=== PATIENT | male | born 1950 | race Caucasian/White ===

== ENCOUNTER 2020-02-21 09:01 | Observation (INO) | payer MEDICARE, SELFPAY ==
[2020-02-21] VITALS (9 sets, daily range): BP systolic 121–174; BP diastolic 60–86; PULSE 68–80; RESP 16–19; TEMP 36.6–37.2; O2SAT 95–98; BMI 25.7
[2020-02-21] MEDS: LIDOCAINE 2% (UROJET) 5 ML GEL TOP (09:24)
--- NOTE | 2020-02-21 09:36 | ED_ITS ---
HPI - Abdominal Pain General Chief Complaint: Abdominal Pain Stated Complaint: Unable to urinate for 7hrs Time Seen by Provider: 02/21/20 09:13 Source: patient Mode of arrival: Ambulatory Limitations: no limitations History of Present Illness HPI narrative: CC: Suprapubic abdominal pain HPI: The patient is a 69-year-old male who comes into the emergency department stating that he developed pain and discomfort after he last urinated at 2:30 a.m.. The pain and discomfort is located suprapubically in his lower abdomen. It is a discomfort associated with the feeling that he has to urinate but is unable to urinate. He complains that he has never before had urinary retention. Two years ago he had a urinary tract infection and was treated with Cipro. He states that he has been unable to urinate for the last 7 hours. He stated that on Sunday he developed hematuria but was started on Xarelto 10 days ago. He feels like he needs to urinate. He has had no other injury or instrumentation. He has had no recent anesthesia or has taking any cold medications. His pain and discomfort is approximately 5 to 6/10 in intensity. The discomfort is just progressively becoming more uncomfortable and annoying. He denies a history of diabetes mellitus stroke myocardial infarction COPD or asthma as well as any prostatitis prostate problems. He admits to history of hypertension and an allergy to lisinopril causing cough. He does not smoke cigarettes drink alcohol use any drugs or marijuana products. 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 Related Data Home Medications Medication Instructions Recorded Confirmed Diltiazem Cd 120 mg PO PRN PRN 02/21/20 02/21/20 candesartan 8 mg PO BEDTIME 02/21/20 02/21/20 ezetimibe 10 mg PO BEDTIME 02/21/20 02/21/20 rivaroxaban [Xarelto] 20 mg PO DAILY 02/21/20 02/21/20 Allergies Allergy/AdvReac Type Severity Reaction Status Date / Time lisinopril Allergy Verified 02/21/20 09:38 Review of Systems Review of Systems Narrative: REVIEW OF SYSTEMS: CONSTITUTIONAL: He denies any fever chills but has had intermittent sweats. NEUROLOGICAL: He denies any headache numbness tingling paresthesias anesthesia is paresis or paralysis. EENT: He denies any sore throat or dysphagia CARDIO-PULMONARY: He denies any shortness of breath cough chest pain palpitations or dizziness. GASTROINTESTINAL: He has had no nausea vomiting diarrhea change in bowel habits melena hematochezia. GENITAL URINARY: He has had recent hematuria some questionable dysuria and urinary retention MUSCULOSKELETAL/ RHEUMATOLOGICAL: He denies any significant back pain. DERMATOLOGICAL: Denies any skin rash bruising MENTAL HEALTH: Patient History Medical History (Updated 02/21/20 @ 19:24 by Yosef Johnson MD) Hyperlipidemia (Acute) Hypertension (Acute) Paroxysmal atrial fibrillation (Acute) Social History household members: spouse Smoking Status: Never smoker Smoking Status: Never smoker alcohol intake frequency: holidays/special occasions only Substance Use Type: does not use Exam Narrative Exam Narrative: PHYSICAL EXAM: CONSTITUTIONAL: Awake, Alert, Oriented, Coherent, Cooperative in NAD. The patie nt is very stoic and matter of fact. He does appear mildly pale HEAD: AT/NC EENT: PERRL, FROM of eyes, no discharge, MOUTH:Oral mucosa is moist and pink, lips appear pale NECK: Supple, no obvious JVD, Trachea is midline without stridor, no palpable LN. SPINE: Palpationof the cervical, Thoracic, Lumbar or Sacral spine reveals no gross deformity or tenderness. No CVA tenderness. THORAX: No deformity, retractions, chest wall tenderness. LUNGS: Clear, symmetrical breath sounds without respiratory distress. HEART: Normal heart tones, regular rhythm and rate without murmur. ABDOMEN: Abdomen is soft tender suprapubically without guarding rebound or rigidity. There is no masses noted. The patient has a normal adult failure us without penile discharge or bleeding. Testicles are descended without mass or tenderness. No appreciable gross inguinal hernia LYMPHATIC: no palpable lymph nodes or spleen. EXTREMITIES: No edema, deformity, tenderness or cyanosis. SKIN: No rash, bruising, petechiae or purpura. NEURO: Awake, alert, oriented, conversive, cranial nerves II-XII are symmetrical , moves all 4 extremities and is ambulatory. MENTAL HEALTH: Does not appear anxious or depressed. Initial Vital Signs Initial Vital Signs: Vital Signs Temperature 97.9 F 02/21/20 09:12 Pulse Rate 68 02/21/20 09:12 Respiratory Rate 19 02/21/20 09:12 Blood Pressure 174/79 H 02/21/20 09:12 Pulse Oximetry 98 02/21/20 09:12 Course Course Course Narrative: 1220 CT scan of the patient's abdomen without contrast since his GFR was only 27.5 reveals a moderate right-sided hydroureter and hydroneph rosis with perinephric fat stranding. This may be related to a recently passed stone. Differential diagnosis includes infection. However no renal stones are seen either side. The left kidney is abnormal with a prominent Daiana dilated collecting system with thinning of the cortex and a normal caliber ureter. 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 Please correlate with known patient history. I will discuss the patient with Dr. Dietrich, urologist. The patient's urine remains pending. The patient has been administered 1 L of fluid. He has now been placed on 200 cc/hour. The patient has right-sided hydronephrosis with what appears to be an obstruction without a stone being visualized. The question is whether not the patient has developed renal failure secondary to obstruction. Andujar catheter inserted did not reveal any urine but just some blood clots. His bladder was irrigated with no increased urine output. Orders Ordered: Ezetimibe (Zetia) 10 mg PO BEDTIME [facility] Last Admin: 02/21/20 22:09 Dose: 10 mg Documented by: RUSS Naloxone HCl (Narcan) 0.2 mg IV Q2MIN PRN PRN Reason: Opiate Reversal Sodium Chloride (Normal Saline 0.9% Flush) 10 ml IV PRN PRN PRN Reason: Flush Sodium Chloride (Normal Saline 0.9% Flush) 10 ml IV BID [facility] Discontinued Medications Candesartan Cilexetil (Atacand) 8 mg PO BEDTIME ARACELIS Sodium Chloride (Normal Saline 0.9%) 1,000 mls @ 1,000 mls/hr IV BOLUS ONE Stop: 02/21/20 10:48 Last Infusion: 02/21/20 11:03 Dose: 0 mls/hr Documented by: Admin: 02/21/20 10:10 Dose: 1,000 mls/hr Documented by: DONNA Sodium Chloride (Normal Saline 0.9%) 1,000 mls @ 1,000 mls/hr IV BOLUS ONE Stop: 02/21/20 15:31 Last Infusion: 02/21/20 14:34 Dose: 0 mls/hr Documented by: Admin: 02/21/20 13:50 Dose: 1,000 mls/hr Documented by: DONNA Cefepime HCl 2 gm/ Sodium (Chloride) 100 mls @ 200 mls/hr IV NOW ONE Stop: 02/21/20 14:39 Last Infusion: 02/21/20 15:53 Dose: 0 mls/hr Documented by: Admin: 02/21/20 15:09 Dose: 200 mls/hr Documented by: DONNA Lidocaine HCl (Urojet) 5 ml TOP NOW ONE Stop: 02/21/20 09:19 Last Admin: 02/21/20 09:24 Dose: 5 ml Documented by: DONNA Vital Signs Vital signs: Vital Signs - 8 hr 02/21/20 09:12 02/21/20 12:00 Temperature 97.9 F Pulse Rate 68 73 Respiratory Rate 19 Blood Pressure 174/79 H Blood Pressure [Right Arm] 162/81 H Pulse Oximetry 98 96 MDM - Abdominal Pain Lab Data Result diagrams: 02/22/20 05:41 02/22/20 05:41 Labs: Lab Results 02/21/20 02/21/20 02/21/20 Range/Units 10:00 10:00 10:00 WBC 13.3 H (4.5-11.0) X10^3/uL RBC 4.45 L (4.5-5.9) X10^6/uL Hgb 13.9 (13.5-17.5) g/dL Hct 41.2 (41-53) % MCV 92.7 (80-100) fL MCH 31.3 (26-34) PG MCHC 33.8 (30-36) % RDW 13.1 (11.6-14.8) % Plt Count 200 (150-400) X10^3/uL Neut % (Auto) 92.0 H (50-75) % Lymph % (Auto) 4.3 L (25-40) % Waller % (Auto) 3.2 (3-14) % Eos % (Auto) 0.0 L (2-4) % Baso % (Auto) 0.5 (0-2) % Neut # (Auto) 01668 H (2280-1637) /uL Lymph # (Auto) 600 L (5793-9583) /uL Waller # (Auto) 400 (0-900) /uL Eos # (Auto) 0 (0-450) /uL Baso # (Auto) 100 (0-100) /uL PT 12.2 (10.1-12.7) SECONDS INR 1.1 (0.9-1.3) APTT 29 (26.4-36.2) SECONDS Sodium 137 (137-145) mmol/L Potassium 4.7 (3.4-5.1) mmol/L Chloride 104 (98-107) mmol/L Carbon Dioxide 24 (22-32) mmol/L BUN 37 H (9-20) mg/dL Creatinine 2.36 H (0.66-1.25) mg/dL Estimated GFR 27.5 L (>60) mL/min BUN/Creatinine Ratio 15.7 (6-22) Glucose 127 H (80-110) mg/dL Lactate (0.7-2.1) mmol/L Calcium 9.0 (8.4-10.2) mg/dL Total Bilirubin 0.7 (0.2-1.3) mg/dL AST 38 (17-59) IU/L ALT 22 (<50) IU/L Alkaline Phosphatase 53 (38-126) U/L Lactate Dehydrogenase (313-618) U/L Total Protein 7.7 (6.3-8.2) g/dL Albumin 4.5 (3.5-5.0) g/dL Globulin 3.2 (1.7-4.1) g/dL Albumin/Globulin Ratio 1.4 (1.0-2.8) Procalcitonin (<0.5) ng/mL Urine Color Urine Appearance Urine pH (4.5-8.0) Ur Specific Caldwell (1.000-1.035) Urine Protein (Negative) Urine Glucose (UA) (Negative) g/dL Urine Ketones (NEGATIVE) Urine Occult Blood (Negative) Urine Nitrate (Negative) Urine Bilirubin (NEGATIVE) Urine Urobilinogen (0.2) E.U./dL Ur Leukocyte Esterase (NEGATIVE) Urine RBC (0-5/HPF) Urine WBC (0-5/HPF) Ur Squamous Epith Cells (0-5/HPF) Urine Bacteria (None) Ur Culture Indicated? 02/21/20 02/21/20 02/21/20 Range/Units 10:00 10:00 10:34 WBC (4.5-11.0) X10^3/uL RBC (4.5-5.9) X10^6/uL Hgb (13.5-17.5) g/dL Hct (41-53) % MCV (80-100) fL MCH (26-34) PG MCHC (30-36) % RDW (11.6-14.8) % Plt Count (150-400) X10^3/uL Neut % (Auto) (50-75) % Lymph % (Auto) (25-40) % Waller % (Auto) (3-14) % Eos % (Auto) (2-4) % Baso % (Auto) (0-2) % Neut # (Auto) (0737-9655) /uL Lymph # (Auto) (7197-8740) /uL Waller # (Auto) (0-900) /uL Eos # (Auto) (0-450) /uL Baso # (Auto) (0-100) /uL PT (10.1-12.7) SECONDS INR (0.9-1.3) APTT (26.4-36.2) SECONDS Sodium (137-145) mmol/L Potassium (3.4-5.1) mmol/L Chloride (98-107) mmol/L Carbon Dioxide (22-32) mmol/L BUN (9-20) mg/dL Creatinine (0.66-1.25) mg/dL Estimated GFR (>60) mL/min BUN/Creatinine Ratio (6-22) Glucose (80-110) mg/dL Lactate 1.4 (0.7-2.1) mmol/L Calcium (8.4-10.2) mg/dL Total Bilirubin (0.2-1.3) mg/dL AST (17-59) IU/L ALT (<50) IU/L Alkaline Phosphatase (38-126) U/L Lactate Dehydrogenase 657 H (313-618) U/L Total Protein (6.3-8.2) g/dL Albumin (3.5-5.0) g/dL Globulin (1.7-4.1) g/dL Albumin/Globulin Ratio (1.0-2.8) Procalcitonin < 0.05 (<0.5) ng/mL Urine Color Urine Appearance Urine pH (4.5-8.0) Ur Specific Caldwell (1.000-1.035) Urine Protein (Negative) Urine Glucose (UA) (Negative) g/dL Urine Ketones (NEGATIVE) Urine Occult Blood (Negative) Urine Nitrate (Negative) Urine Bilirubin (NEGATIVE) Urine Urobilinogen (0.2) E.U./dL Ur Leukocyte Esterase (NEGATIVE) Urine RBC (0-5/HPF) Urine WBC (0-5/HPF) Ur Squamous Epith Cells (0-5/HPF) Urine Bacteria (None) Ur Culture Indicated? 02/21/20 Range/Units 13:25 WBC (4.5-11.0) X10^3/uL RBC (4.5-5.9) X10^6/uL Hgb (13.5-17.5) g/dL Hct (41-53) % MCV (80-100) fL MCH (26-34) PG MCHC (30-36) % RDW (11.6-14.8) % Plt Count (150-400) X10^3/uL Neut % (Auto) (50-75) % Lymph % (Auto) (25-40) % Waller % (Auto) (3-14) % Eos % (Auto) (2-4) % Baso % (Auto) (0-2) % Neut # (Auto) (7906-6120) /uL Lymph # (Auto) (4877-8118) /uL Waller # (Auto) (0-900) /uL Eos # (Auto) (0-450) /uL Baso # (Auto) (0-100) /uL PT (10.1-12.7) SECONDS INR (0.9-1.3) APTT (26.4-36.2) SECONDS Sodium (137-145) mmol/L Potassium (3.4-5.1) mmol/L Chloride (98-107) mmol/L Carbon Dioxide (22-32) mmol/L BUN (9-20) mg/dL Creatinine (0.66-1.25) mg/dL Estimated GFR (>60) mL/min BUN/Creatinine Ratio (6-22) Glucose (80-110) mg/dL Lactate (0.7-2.1) mmol/L Calcium (8.4-10.2) mg/dL Total Bilirubin (0.2-1.3) mg/dL AST (17-59) IU/L ALT (<50) IU/L Alkaline Phosphatase (38-126) U/L Lactate Dehydrogenase (313-618) U/L Total Protein (6.3-8.2) g/dL Albumin (3.5-5.0) g/dL Globulin (1.7-4.1) g/dL Albumin/Globulin Ratio (1.0-2.8) Procalcitonin (<0.5) ng/mL Urine Color Yellow Urine Appearance Clear Urine pH 7.5 (4.5-8.0) Ur Specific Caldwell <=1.005 (1.000-1.035) Urine Protein Trace H (Negative) Urine Glucose (UA) Negative (Negative) g/dL Urine Ketones Negative (NEGATIVE) Urine Occult Blood 3+ H (Negative) Urine Nitrate Negative (Negative) Urine Bilirubin Negative (NEGATIVE) Urine Urobilinogen 0.2 (0.2) E.U./dL Ur Leukocyte Esterase Negative (NEGATIVE) Urine RBC 10-30/hpf H (0-5/HPF) Urine WBC 5-10/hpf H (0-5/HPF) Ur Squamous Epith Cells 0-1 /hpf (0-5/HPF) Urine Bacteria Occasional (0-1) (None) Ur Culture Indicated? Specimen cultured Discharge Plan Departure Patient Disposition: Admitted as Observation Clinical Impression: Abdominal pain, suprapubic, Acute pyelonephritis Urinary tract infection Qualifiers: Urinary tract infection type: acute cystitis Hematuria presence: with hematuria Qualified Code(s): N30.01 - Acute cystitis with hematuria Hydronephrosis Qualifiers: Hydronephrosis type: other Qualified Code(s): N13.39 - Other hydronephrosis Renal failure Qualifiers: Renal failure chronicity: unspecified chronicity Qualified Code(s): N19 - Unspecified kidney failure Discharge Date/Time: 02/21/20 16:55 Admit Date/Time: 02/21/20 15:53 Admit Provider: Yosef Johnson
--- NOTE | 2020-02-21 09:49 | DI.CT.S_ITS ---
PROCEDURE: CT ABDOMEN PELVIS WO CON INDICATIONS: lower abdominal pain TECHNIQUE: Noncontrast 5 mm thick sections acquired from the diaphragms to the symphysis. 5 mm thick coronal and sagittal reformats were then performed. For radiation dose reduction, the following was used: automated exposure control, adjustment of mA and/or kV according to patient size. COMPARISON: None. FINDINGS: Image quality: Excellent. Lung bases: Lung bases are clear. Heart size is normal. A small hiatal hernia is incidentally noted. Urinary system: On the left, there is prominent dilatation of the renal collecting system, with a normal caliber left ureter. No stones are seen along the left ureter. There is prominent thinning of the left renal cortex. On the right, there is prominent fatty stranding seen. There is moderate right-sided hydroureter and hydronephrosis. No nonobstructing stones are seen on either side. A Andujar catheter is seen, which decompresses the bladder. Other solid organs: Liver is normal in size. Gallbladder demonstrates no significant noncontrast abnormality. Pancreas is normal in contours. Spleen is normal in size. No adrenal nodules. Peritoneum and bowel: Unenhanced bowel loops demonstrate normal wall thickness and caliber. No free fluid or air. Nodes and vessels: No retroperitoneal or mesenteric adenopathy by size criteria. Aorta and inferior vena cava are normal in caliber. Atherosclerotic calcification is noted. Incidental note is made of a retroaortic left renal vein. Abdominal wall: No ventral hernias. Pelvis: No free pelvic fluid. No enlarged inguinal or pelvic lymph nodes are seen. Bilateral fat containing inguinal hernias are seen. Pelvic phleboliths are incidentally noted. Bones: No suspicious bony lesions. No vertebral body compression fractures. Mild dextroconvex scoliotic curvature is seen. Lower lumbar spine degenerative changes are seen. Milder degenerative changes are seen elsewhere. IMPRESSION: There is moderate right-sided hydroureter and hydronephrosis with perinephric fat stranding. This may be related to a recently passed stone. Differential diagnosis includes infection, however. No renal stones are seen either side. The left kidney is abnormal, with a prominently dilated collecting system with thinning of the cortex and a normal caliber ureter. 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 Please correlate with known patient history. Incidental note is made of: Small hiatal hernia Retroaortic left renal vein Bilateral fat containing inguinal hernias Andujar catheter Dextroconvex clinic curvature Lower lumbar spine degenerative change Dictated by: Monty Constantino M.D. on 02/21/2020 at 10:19 Approved by: Monty Constantino M.D. on 02/21/2020 at 10:25
[2020-02-21] MEDS: SODIUM CHLORIDE 0.9% 1,000 ML 1000 ML IV ×2 (10:10→13:50)
[2020-02-21 10:16] LABS: Add Manual Diff / Slide Review NO; Basophils Absolute Auto 100 /uL (0-100); Basophils Percent Auto 0.5 % (0-2); Eosinophils Absolute Auto 0 /uL (0-450); Hematocrit 41.2 % (41-53); Hemoglobin 13.9 g/dL (13.5-17.5); Lymphocytes Absolute Auto 600 /uL (1100-4500); Lymphocytes Percent Auto 4.3 % (25-40); Mean Corpuscular HGB Conc 33.8 % (30-36); Mean Corpuscular Hemoglobin 31.3 PG (26-34); Mean Corpuscular Volume 92.7 fL (80-100); Monocytes Absolute Auto 400 /uL (0-900); Monocytes Percent Auto 3.2 % (3-14); Neutrophils Absolute Auto 12200 /uL (1500-7000); Platelet Count 200 X10^3/uL (150-400); Red Blood Cell Count 4.45 X10^6/uL (4.5-5.9); Red Cell Distribution Width 13.1 % (11.6-14.8); White Blood Cell Count 13.3 X10^3/uL (4.5-11.0)
[2020-02-21 10:19] LABS: INR 1.1 (0.9-1.3); Prothrombin Time 12.2 SECONDS (10.1-12.7)
[2020-02-21 10:21] LABS: PTT Partial Thromboplastin Tim 29 SECONDS (26.4-36.2)
[2020-02-21 10:24] LABS: Alanine Aminotransferase 22 IU/L (<50); Albumin 4.5 g/dL (3.5-5.0); Albumin Globulin Ratio 1.4 (1.0-2.8); Alkaline Phosphatase 53 U/L (38-126); Aspartate Aminotransferase 38 IU/L (17-59); BUN Creatinine Ratio 15.7 (6-22); Bilirubin Total 0.7 mg/dL (0.2-1.3); Blood Urea Nitrogen 37 mg/dL (9-20); Carbon Dioxide 24 mmol/L (22-32); Chloride 104 mmol/L (98-107); Estimated Glomerular Filt Rate 27.5 mL/min (>60); Globulin 3.2 g/dL (1.7-4.1); Glucose 127 mg/dL (80-110); Sodium 137 mmol/L (137-145); Total Protein 7.7 g/dL (6.3-8.2)
[2020-02-21 10:25] LABS: Lactate Dehydrogenase 657 U/L (313-618)
[2020-02-21 10:36] LABS: HEMOLYSIS 61 (0-50); Potassium 4.7 mmol/L (3.4-5.1)
[2020-02-21 10:53] LABS: Lactate (Lactic Acid) 1.4 mmol/L (0.7-2.1)
[2020-02-21 13:37] LABS: Appearance Urine UA CLEAR; Bilirubin Urine UA NEGATIVE (NEGATIVE); Color Urine UA YELLOW; Glucose Urine UA NEGATIVE (Negative); Ketones Urine UA NEGATIVE (NEGATIVE); Leukocyte Esterase Urine UA NEGATIVE (NEGATIVE); Nitrite Urine UA NEGATIVE (Negative); Occult Blood Urine UA 3+ (Negative); Protein Urine UA TRACE (Negative); Specific Gravity Urine UA <=1.005 (1.000-1.035); Urobilinogen Urine UA 0.2 E.U./dL (0.2); pH Urine UA 7.5 (4.5-8.0)
[2020-02-21 13:44] LABS: Bacteria Urine Occasional (0-1); Culture Indicated Urine Specimen Cultured; RBC Urine 10-30/HPF (0-5/HPF); Squamous Epithelial Cell Urine 0-1 /HPF (0-5/HPF); WBC Urine 5-10/HPF (0-5/HPF)
--- NOTE | 2020-02-21 14:36 | DI.US.S_ITS ---
PROCEDURE: US RENAL COMPLETE INDICATIONS: RENAL FAILURE, RIGHT HYDRONEPHROSIS TECHNIQUE: Real-time scanning was performed of the kidneys and bladder, with image documentation. COMPARISON: [facility], CT, CT ABDOMEN PELVIS WO [facility], 02/21/2020, 10:52. FINDINGS: Kidneys: Kidneys are normal in size. Right kidney measures 12.3 cm long; left kidney measures 12.6 cm long. Right renal cortical thickness is 1.6 cm; left renal cortical thickness is 0.8 cm. Renal cortical echotexture is normal. No nephrolithiasis. No suspicious solid mass lesions. Moderate sided hydronephrosis is seen. Prominently dilated left renal calyces can be seen. Bladder: A Andujar catheter is in place, which limits evaluation of the bladder. Miscellaneous: No free pelvic fluid. IMPRESSION: Right-sided hydronephrosis. Left calyceal dilatation with, thinning of the renal cortex. The abnormal kidneys are better seen on the CT performed earlier in the day. Note: Concordant preliminary findings given by the business coordinator upon the completion of the examination to Dr. Morgan at 3:45 PM on the day of dictation. Dictated by: Monty Constantino M.D. on 02/21/2020 at 15:04 Approved by: Monty Constantino M.D. on 02/21/2020 at 15:07
[2020-02-21] MEDS: CEFEPIME 2 GM in SODIUM CHLORIDE 0.9% 100 ML 200 ML IV (15:09)
--- NOTE | 2020-02-21 17:29 | PC.ADMIT ---
Addendum entered by Vanessa Wray R.N. 02/21/20 20:13: Home Meds locked in Night med room for pharmacist to store in pharmacy. (Diltiazem, Candesartan, Ezetimibe) Wallet with $121 and credit/debit cards locked in hospital safe. Original Note: [facility] Admission Note: The patient,Hernan Agustin,69 y/o, was given written information regarding hospital policies, unit procedures and contact persons. Patient's smoking status: Never smoker. Pt arrived to room 215. A/O. Ambulated from stretcher to bed. Steady on feet. BP Elevated pt denies symptoms. Oriented to room and call system. Andujar draining to gravity. Dinner tray provided. Bed alarm on. Vital Signs - 8 hr 02/21/20 12:00 02/21/20 13:00 02/21/20 14:30 Pulse Rate 73 79 75 Respiratory Rate Blood Pressure [Right Arm] 162/81 H 137/71 148/70 H Pulse Oximetry 96 96 97 02/21/20 15:00 02/21/20 16:30 Pulse Rate 80 75 Respiratory Rate 116 H Blood Pressure [Right Arm] 156/73 H 135/72 Pulse Oximetry 95 95
[2020-02-21 19:12] LABS: Procalcitonin < 0.05 ng/mL (<0.5)
--- NOTE | 2020-02-21 19:24 | PM.HP.1 ---
History of Present Illness History of Present Illness Date Patient Seen: 02/21/20 Time Patient Seen: 18:30 Chief complaint: Unable to urinate for 7hrs Narrative: Patient is a 69-year-old male with history of hypertension, hyperlipidemia, recent diagnosis of paroxysmal atrial fibrillation and started on Xarelto who presented to the emergency department due to difficulty urinating since last night. Patient has history of left kidney abnormality for which she was seeing a urologist while living in [place]. He was told the kidney problem was chronic and not affecting his kidney function. He also was followed by drafting engineer although told that his creatinine is only borderline high or mildly abnormal. Patient developed acute gross hematuria 3 days ago. He was not having pain or urgency at that time. He then stop the Xarelto. He felt fine when he went to bed last night. He woke up at around 2:30 a.m. with urinary urgency but unable to empty his bladder. This was accompanied by severe spasms of suprapubic pain. The symptoms persisted until he came into the ER this morning. He has not had fever, chills, nausea, vomiting or flank pain. He has no history of kidney stones. His KUB CT showed hydronephrosis of the left kidney which is likely chronic based on history provided by patient. Additionally there is hydronephrosis and hydroureter on the right side. There is no evidence of stone disease. There is mild right perinephric stranding. On ultrasound both kidneys are equal and normal size. There is the hydronephrosis that was better seen on CT. There is some thinning of the left renal cortex and left caliceal dilatation. On laboratories he has mildly elevated WBC of 13.3 with a normal procalcitonin of less than 0.05. However his creatinine is elevated at 2.36 with a BUN of 37. His lactate is normal. Vital Signs also fairly normal. Patient History Medical History (Updated 02/21/20 @ 19:24 by Yosef Johnson MD) Hyperlipidemia (Acute) Hypertension (Acute) Paroxysmal atrial fibrillation (Acute) Family & Social History Safety & Behavioral: Feels Safe in Current Yes Environment Tobacco & Substance use: Smoking Status Never smoker alcohol intake frequency holiday/special occasion Substance Use Type does not use Meds Home Medications and Allergies Home Medications Medication Instructions Recorded Confirmed Type Diltiazem Cd 120 mg PO PRN PRN 02/21/20 History candesartan 8 mg PO BEDTIME 02/21/20 02/21/20 History ezetimibe 10 mg PO BEDTIME 02/21/20 02/21/20 History rivaroxaban [Xarelto] 20 mg PO DAILY 02/21/20 02/21/20 History Allergies Allergy/AdvReac Type Severity Reaction Status Date / Time lisinopril Allergy Verified 02/21/20 09:38 Review of Systems Review of Systems ROS: Yes All systems reviewed with the patient and are negative except as otherwise documented Exam Vital Signs (past 8 hours): - 02/21/20 12:00 02/21/20 13:00 02/21/20 14:30 Temperature Pulse Rate 73 79 75 Respiratory Rate Blood Pressure Blood Pressure [Right Arm] 162/81 H 137/71 148/70 H Pulse Oximetry 96 96 97 02/21/20 15:00 02/21/20 16:30 02/21/20 16:50 Temperature 99 F Pulse Rate 80 75 75 Respiratory Rate 16 18 Blood Pressure 150/86 H Blood Pressure [Right Arm] 156/73 H 135/72 Pulse Oximetry 95 95 97 Oxygen Delivery Method Room Air Oxygen Flow Rate 0 Narrative Exam Narrative: General: Alert well-developed well-nourished male who is in no acute distress HEENT: Nontraumatic, pupils equal Neck: Supple no lymphadenopathy Lungs: Clear to auscultation Heart: Normal S1 and S2 regular rate and rhythm without murmur Abdomen: Nondistended, soft, nontender, including no flank tenderness, Andujar catheter noted placed in ER Neurological: Sensorium intact nonfocal Skin: No rash or petechiae Objective Labs Result Diagrams: 02/21/20 10:00 02/21/20 10:00 Labs: Laboratory Results - last 24 hr 02/21/20 02/21/20 02/21/20 10:00 10:00 10:00 WBC 13.3 H RBC 4.45 L Hgb 13.9 Hct 41.2 MCV 92.7 MCH 31.3 MCHC 33.8 RDW 13.1 Plt Count 200 Neut % (Auto) 92.0 H Lymph % (Auto) 4.3 L [place] % (Auto) 3.2 Eos % (Auto) 0.0 L Baso % (Auto) 0.5 Neut # (Auto) 01096 H Lymph # (Auto) 600 L [place] # (Auto) 400 Eos # (Auto) 0 Baso # (Auto) 100 PT 12.2 INR 1.1 APTT 29 Sodium 137 Potassium 4.7 Chloride 104 Carbon Dioxide 24 BUN 37 H Creatinine 2.36 H Estimated GFR 27.5 L BUN/Creatinine Ratio 15.7 Glucose 127 H Lactate Calcium 9.0 Total Bilirubin 0.7 AST 38 ALT 22 Alkaline Phosphatase 53 Lactate Dehydrogenase Total Protein 7.7 Albumin 4.5 Globulin 3.2 Albumin/Globulin Ratio 1.4 Procalcitonin Urine Color Urine Appearance Urine pH Ur Specific [place] Urine Protein Urine Glucose (UA) Urine Ketones Urine Occult Blood Urine Nitrate Urine Bilirubin Urine Urobilinogen Ur Leukocyte Esterase Urine RBC Urine WBC Ur Squamous Epith Cells Urine Bacteria Ur Culture Indicated? 02/21/20 02/21/20 02/21/20 10:00 10:00 10:34 WBC RBC Hgb Hct MCV MCH MCHC RDW Plt Count Neut % (Auto) Lymph % (Auto) [place] % (Auto) Eos % (Auto) Baso % (Auto) Neut # (Auto) Lymph # (Auto) [place] # (Auto) Eos # (Auto) Baso # (Auto) PT INR APTT Sodium Potassium Chloride Carbon Dioxide BUN Creatinine Estimated GFR BUN/Creatinine Ratio Glucose Lactate 1.4 Calcium Total Bilirubin AST ALT Alkaline Phosphatase Lactate Dehydrogenase 657 H Total Protein Albumin Globulin Albumin/Globulin Ratio Procalcitonin < 0.05 Urine Color Urine Appearance Urine pH Ur Specific [place] Urine Protein Urine Glucose (UA) Urine Ketones Urine Occult Blood Urine Nitrate Urine Bilirubin Urine Urobilinogen Ur Leukocyte Esterase Urine RBC Urine WBC Ur Squamous Epith Cells Urine Bacteria Ur Culture Indicated? 02/21/20 13:25 WBC RBC Hgb Hct MCV MCH MCHC RDW Plt Count Neut % (Auto) Lymph % (Auto) [place] % (Auto) Eos % (Auto) Baso % (Auto) Neut # (Auto) Lymph # (Auto) [place] # (Auto) Eos # (Auto) Baso # (Auto) PT INR APTT Sodium Potassium Chloride Carbon Dioxide BUN Creatinine Estimated GFR BUN/Creatinine Ratio Glucose Lactate Calcium Total Bilirubin AST ALT Alkaline Phosphatase Lactate Dehydrogenase Total Protein Albumin Globulin Albumin/Globulin Ratio Procalcitonin Urine Color Yellow Urine Appearance Clear Urine pH 7.5 Ur Specific [place] <=1.005 Urine Protein Trace H Urine Glucose (UA) Negative Urine Ketones Negative Urine Occult Blood 3+ H Urine Nitrate Negative Urine Bilirubin Negative Urine Urobilinogen 0.2 Ur Leukocyte Esterase Negative Urine RBC 10-30/hpf H Urine WBC 5-10/hpf H Ur Squamous Epith Cells 0-1 /hpf Urine Bacteria Occasional (0-1) Ur Culture Indicated? Specimen cultured Assessment & Plan Assessment & Plan narrative: 1. Acute urinary retention, present on admission, active -patient presents with acute urgency, suprapubic pain and inability to empty his bladder; Andujar placed in the ER with only small amount of urine; however, based on symptoms patient likely has acute urinary retention. -discussed findings with Dr. Mullins, on-call Urology -UA microscopic with 10-30 RBC, 5-10 WBC, occasional bacteria -no evidence of kidney stone or bladder stone on CT -the left hydronephrosis is likely chronic based on patient history, the right hydronephrosis is likely secondary to acute urinary retention -etiology of urinary retention could be BPH or clotting in the bladder -maintain Andujar catheter, per Urology recommendations patient will be discharged with Andujar catheter -start tamsulosin 0.4 mg daily -urine sent for culture 2. Acute gross hematuria -patient had painless hematuria [address] after having started on Xarelto about a week ago -UA with moderate RBC but gross hematuria has cleared up with stopping Xarelto -etiology of hematuria includes BPH, bladder polyp or tumor -patient need cystoscopy which can be arranged as outpatient 3. Acute kidney injury, present on admission, active -creatinine 2.36 on admission, baseline creatinine unknown but patient states he was told he has only borderline high or mildly high creatinine -likely etiology postobstructive renal failure which is addressed with Andujar catheter -received 2 L NS in the ED -monitor urine output for postobstructive diuresis -recheck renal function labs in a.m. -hold patient's candesartan 4. Leukocytosis, present on admission -patient without fever and has a procalcitonin less than 0.05 -he has mild right perinephric stranding on CT but otherwise no clinical signs of pyelonephritis such is fever, vomiting, flank pain or tenderness -received 1 dose IV antibiotic in ED but can hold further antibiotic -follow-up on urine culture -check CBC in a.m. 5. Hypertension -hold candesartan due to FRANDY 6. Paroxysmal atrial fibrillation -this is recent diagnosis for patient -currently in sinus rhythm -hold Xarelto due to recent unexplained hematuria -telemetry monitoring Admission status: Hospital observation Diet: General DVT prophylaxis: SCDs
[2020-02-21] MEDS: EZETIMIBE 10 MG TABLET PO (22:09)
--- NOTE | 2020-02-22 00:52 | PC.NURSE ---
Patient is alert and oriented. Breath sounds CTA with RA sat of 95%. 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 Denies nausea. BT present and abdomen is soft. Indwelling catheter is patent; urine is clear, dark yellow. Able to move self in bed. Denies any ambulation problems and denies use of device; gait not assessed as not out of bed at this time. Wearing bilateral calf SCD's. Denies pain. Fall risk score is moderate; bed alarm is activated for safety.
[2020-02-22 05:10] VITALS: BP 103/59; PULSE 69; RESP 16; TEMP 36.9; O2SAT 94
[2020-02-22 06:10] LABS: Add Manual Diff / Slide Review NO; Basophils Absolute Auto 0 /uL (0-100); Basophils Percent Auto 0.2 % (0-2); Eosinophils Absolute Auto 100 /uL (0-450); Eosinophils Percent Auto 1.2 % (2-4); Hemoglobin 12.5 g/dL (13.5-17.5); Lymphocytes Absolute Auto 2200 /uL (1100-4500); Lymphocytes Percent Auto 24.1 % (25-40); Mean Corpuscular HGB Conc 33.8 % (30-36); Mean Corpuscular Hemoglobin 31.4 PG (26-34); Mean Corpuscular Volume 92.8 fL (80-100); Monocytes Absolute Auto 700 /uL (0-900); Monocytes Percent Auto 7.8 % (3-14); Neutrophils Absolute Auto 6100 /uL (1500-7000); Neutrophils Percent Auto 66.7 % (50-75); Platelet Count 182 X10^3/uL (150-400); Red Blood Cell Count 3.99 X10^6/uL (4.5-5.9); Red Cell Distribution Width 13.4 % (11.6-14.8); White Blood Cell Count 9.2 X10^3/uL (4.5-11.0)
[2020-02-22 06:12] LABS: Blood Urea Nitrogen 32 mg/dL (9-20); Calcium 8.2 mg/dL (8.4-10.2); Carbon Dioxide 23 mmol/L (22-32); Chloride 110 mmol/L (98-107); Estimated Glomerular Filt Rate 40.7 mL/min (>60); Glucose 97 mg/dL (80-110); HEMOLYSIS < 15 (0-50); Sodium 138 mmol/L (137-145)
[2020-02-22 08:34] VITALS: BP 135/78; PULSE 65; RESP 16; TEMP 36.6; O2SAT 97
[2020-02-22] MEDS: SODIUM CHLORIDE 0.9% FLUSH 10 ML IV (09:04)
--- NOTE | 2020-02-22 10:49 | CM.DANOTE ---
Discharge Planning/Care Management DCP: assessment: case received, EMR reviewed and met with pt and his during Team Bedside Rounds. Introduced self and role. Pt is a 69 year old male who admitted yesterday afternoon to care of hospitalist team. PCP: [facility] Pt admitted with inability to void for many hours. Urology was consulted. Dr. Johnson explained to all that pt would be d/c'd to home today with rosales catheter in place. He will make an appointment to see Dr. Vidal and Dr. Johnson advises him to let the clinic know that he was in the hospital and needs an urgent appt with expectation of need for cystoscopy. This would be a first time appointment for this patient. Pt and his indicated they were comfortable with the d/c to home setting today. RN will be doing catheter care teaching prrior to the d/c. [employer] will provide a priority board for ferry if needed. P: home today as per above Advanced directive, confirm from FAMILY Start: 02/21/20 19:32 Freq: Q24H Status: Active Protocol: Document 02/21/20 20:46 GMP (Rec: 02/21/20 22:42 GMP [id number]) Advance Directive, confirm on record Time 18:00 Person contacted pt Copy received No CM Discharge Assessment Start: 02/22/20 10:47 Freq: Status: Active Protocol: Document 02/22/20 10:48 ITV (Rec: 02/22/20 10:49 ITV [id number]) Discharge Planning Assessment Advance Directives? Yes History Provided By Patient,Family Member,Medical Record Has Patient been admitted in last 30 No days? Prior Living Arrangements House Comment lives on [address] Household Members spouse Independent with ADL's Yes Is patient alert and oriented? Yes Discharge Plan Home Review Status In Process
--- NOTE | 2020-02-22 11:33 | PC.NURSE ---
Pt now dressed and ready for discharge home [place] the [place] to [place]. with his spouse and all belongings. Pt's meds from pharmacy and wallet from safe were both returned and signed for. Went over d/c instructions with Pt and Spouse - discussed d/c meds, time of last dose, stroke education, reviewed handout and hands on training for catheter care and leg bag transfer, Pt to continuous pickling line pickler their prescription at [facility] prior to boarding the ferry. Pt and spouse deny further questions and Pt was taken out via w/c to POV with Spouse and all belongings.
--- NOTE | 2020-02-22 15:43 | P.DS_ITS ---
History of Present Illness History of Present Illness Chief complaint: Unable to urinate for 7hrs Narrative: Patient is a 69-year-old male with history of hypertension, hyperlipidemia, recent diagnosis of paroxysmal atrial fibrillation and started on Xarelto who presented to the emergency department due to difficulty urinating since last night. Patient has history of left kidney abnormality for which she was seeing a urologist while living in [place]. He was told the kidney problem was chronic and not affecting his kidney function. He also was followed by agricultural education professor although told that his creatinine is only borderline high or mildly abnormal. Patient developed acute gross hematuria 3 days ago. He was not having pain or urgency at that time. He then stop the Xarelto. He felt fine when he went to bed last night. He woke up at around 2:30 a.m. with urinary urgency but unable to empty his bladder. This was accompanied by severe spasms of suprapubic pain. The symptoms persisted until he came into the ER this morning. He has not had fever, chills, nausea, vomiting or flank pain. He has no history of kidney stones. His KUB CT showed hydronephrosis of the left kidney which is likely chronic based on history provided by patient. Additionally there is hydronephrosis and hydroureter on the right side. There is no evidence of stone disease. There is mild right perinephric stranding. On ultrasound both kidneys are equal and normal size. There is the hydronephrosis that was better seen on CT. There is some thinning of the left renal cortex and left caliceal dilatation. On laboratories he has mildly elevated WBC of 13.3 with a normal procalcitonin of less than 0.05. However his creatinine is elevated at 2.36 with a BUN of 37. His lactate is normal. Vital Signs also fairly normal. Discharge Providers Provider Date of admission: 02/21/20 15:53 Discharge Date: 02/22/20 Discharge provider: Yosef Johnson MD Summary Hospital Course Discharge Diagnosis: 1. Acute urinary retention 2. Gross hematuria 3. Chronic left renal hydronephrosis 4. Acute right renal hydronephrosis secondary to urinary retention 5. Acute kidney injury, postobstructive 6. Chronic kidney disease stage 3 7. Hypertension 8. Paroxysmal atrial fibrillation Hospital Course: Patient is 69-year-old male admitted to observation service due to recent gross hematuria and acute suprapubic pain and inability to urinate. 1. Acute urinary retention, present on admission, active -patient presents with acute urgency, suprapubic pain and inability to empty his bladder; Andujar placed in the ER with only small amount of urine; however, based on symptoms patient likely has acute urinary retention. -discussed findings with Dr. Mullins, on-call Urology -UA microscopic with 10-30 RBC, 5-10 WBC, occasional bacteria, preliminary culture no growth -no evidence of kidney stone or bladder stone on CT -the left hydronephrosis is known chronic, the right hydronephrosis is likely secondary to acute urinary retention -etiology of urinary retention could be BPH or clotting in the bladder -per Urology recommendations patient will be discharged with Andujar catheter -started tamsulosin 0.4 mg daily -patient is planning to see Dr. Richmond for outpatient urology consultation 2. Acute gross hematuria -patient had painless hematuria 3 days CAREER REPRESENTATIVE after having started on Xarelto about a week ago -UA with moderate RBC but gross hematuria has cleared up with stopping Xarelto -etiology of hematuria includes BPH, bladder polyp or tumor -patient need cystoscopy which can be arranged as outpatient 3. Acute kidney injury, present on admission, active -creatinine 2.36 on admission, baseline creatinine 1.53 on outside labs 02/07/2019 -likely etiology postobstructive renal failure which is addressed with Andujar catheter -received 2 L NS in the ED -repeat creatinine 1.68 which is close to his baseline -patient can restart candesartan this evening 4. Leukocytosis, present on admission, resolved -patient without fever and has a procalcitonin less than 0.05 -he has mild right perinephric stranding on CT but otherwise no clinical signs of pyelonephritis such is fever, vomiting, flank pain or tenderness -received 1 dose IV antibiotic in ED but can hold further antibiotic -WBC is normal this a.m. 6. Paroxysmal atrial fibrillation -this is recent diagnosis for patient -currently in sinus rhythm -held Xarelto due to recent unexplained hematuria -will continue holding Xarelto, also discuss with prescribing provider taking a lower dose of Xarelto, based on his stage III CKD he should probably be on the 15 mg daily dosage Exam Vital Signs (past 8 hours): - 02/22/20 08:34 Temperature 97.9 F Pulse Rate 65 Respiratory Rate 16 Blood Pressure 135/78 Pulse Oximetry 97 Oxygen Delivery Method Room Air Oxygen Flow Rate 0 Objective Labs Result Diagrams: 02/22/20 05:41 02/22/20 05:41 Labs: Laboratory Results - last 24 hr 02/21/20 02/22/20 02/22/20 10:00 05:41 05:41 WBC 9.2 RBC 3.99 L Hgb 12.5 L Hct 37.0 L MCV 92.8 MCH 31.4 MCHC 33.8 RDW 13.4 Plt Count 182 Neut % (Auto) 66.7 D Lymph % (Auto) 24.1 L [place] % (Auto) 7.8 Eos % (Auto) 1.2 L Baso % (Auto) 0.2 Neut # (Auto) 6100 Lymph # (Auto) 2200 [place] # (Auto) 700 Eos # (Auto) 100 Baso # (Auto) 0 Sodium 138 Potassium 4.0 Chloride 110 H Carbon Dioxide 23 BUN 32 H Creatinine 1.68 H Estimated GFR 40.7 L BUN/Creatinine Ratio 19.0 Glucose 97 Calcium 8.2 L Procalcitonin < 0.05 Discharge Plan Discharge Plan Patient Disposition: Home Discharge comment: You were admitted due to acute urinary retention. You need a cystoscopy to evaluate for cause of urinary bleeding. We are starting you on tamsulosin to help with bladder emptying. The urologist or PCP can remove your urinary catheter. You were also treated for acute kidney failure due to urinary obstruction. Your creatinine was 2.36 on admission and improved to 1.68 the following day. Your baseline creatinine is 1.53 (eGFR 46, stage 3 CKD) from labs in January 2019. You may need dose of Xarelto adjusted once you go back on it. You should have your kidney blood work rechecked in 1 to 2 weeks. Discharge orders & Medications Prescriptions: New tamsulosin 0.4 mg capsule 0.4 mg PO BEDTIME Qty: 30 RF: 0 Continued candesartan 8 mg Tablet 8 mg PO BEDTIME RF: 0 ezetimibe 10 mg Tablet 10 mg PO BEDTIME RF: 0 Diltiazem Cd 120 mg PO PRN PRN (Reason: As needed for HR) RF: 0 Discontinued Xarelto 20 mg tablet 20 mg PO DAILY RF: 0 Follow up/Referrals: Freddie Richmond MD [Physician] - None Diet/Activity/Treatments Diet: Diet as Tolerated Catheter: 2-way Andujar Skin/Wound/Dressing Care Report to your healthcare provider any signs of infection, such as:: chills, fever Visit Report/Discharge Packet Instructions: How to Care for Your Andujar Catheter -- Male, Blood in Urine, DI for Urinary Retention in Men, Tamsulosin Visit Report Forms: Patient Portal/API, Stroke Signs & Symptoms Discharge Data Attending Provider: Yosef Johnson Admit Date/Time: 02/21/20 15:53 Discharges patient from system. Discharge Date/Time: 02/22/20 11:52
== END 2020-02-22 11:52 | disposition home or self-care (01) ==
LOC: ED 15:46 → AC 15:53
PROVIDERS: Admitting Provider Internal Medicine; Emergency Provider Emergency Medicine; Referring Provider Emergency Medicine; Visit Provider Internal Medicine
DX: N13.39 Other hydronephrosis (principal); R10.2 Pelvic and perineal pain; R31.0 Gross hematuria; R33.9 Retention of urine, unspecified; N17.9 Acute kidney failure, unspecified; D72.829 Elevated white blood cell count, unspecified; I12.9 Hypertensive chronic kidney disease with stage 1 through stage 4 chronic kidney disease, or unspecified chronic kidney disease; N18.3 Chronic kidney disease, stage 3 (moderate); E78.5 Hyperlipidemia, unspecified; I48.0 Paroxysmal atrial fibrillation; Z79.01 Long term (current) use of anticoagulants
CPT/HCPCS: 36415; 51701; 51798; 74176; 76770; 80048; 80053; 81001; 83605; 83615; 84145; 85025; 85610; 85730; 87086; 96361; 96365; 99285; G0378; J0692

== ENCOUNTER → 2020-11-04 17:22 | Outpatient (CLI) | payer MEDICARE, SELFPAY ==
[2020-03-08 11:48] VITALS: BMI 25.7
--- NOTE | 2020-11-04 17:26 | DI.MRI.S_ITS ---
PROCEDURE: MR ANKLE LT WO CON INDICATIONS: Achilles tendinitis, left leg TECHNIQUE: Noncontrast sagittal T1 spin echo and T2 fast spin echo with fat saturation, axial proton density fast spin echo and T2 fast spin echo with fat saturation, coronal T1 spin echo and T2 fast spin echo with fat saturation through the ankle/hindfoot. COMPARISON: None. FINDINGS: Image quality: Excellent. Bones and joints: No bone marrow contusions or fractures. No hindfoot coalitions. No osteochondral injuries of the talar dome. No pathologic joint effusions. Medial structures: Posterior tibialis intact. Mild posterior tibialis tenosynovitis. Flexor digitorum longus intact. Flexor hallucis longus tendon intact. The posterior tibial neurovascular bundle appears normal within the tarsal tunnel, without extrinsic mass effect. Deltoid ligament complex appears intact. The spring ligament appears intact. Lateral structures: Anterior talofibular ligament intact. Calcaneofibular ligament intact. Posterior talofibular ligament intact. Anterior and posterior tibiofibular ligaments appear intact, as is the intermalleolar ligament. Tibiofibular syndesmosis is normal in width at 2 mm or less. Peroneus longus and brevis tendons appear normal. Bony peroneal tubercle and retrotrochlear prominence are normal in size. Sinus tarsi demonstrates normal fatty signal, without edema, fibrosis, or cyst formation. Anterior structures: Tibialis anterior intact. Extensor hallucis longus intact. Extensor digitorum longus tendon intact. Dorsal talonavicular ligament appears intact. Posterior and plantar structures: Achilles tendon is intact. There is adjacent soft tissue edema approximately 6 cm cephalad to the calcaneal insertion Medial band plantar fasciitis, near the calcaneal attachment with associated adjacent soft tissue edema. No abductor digiti quinti muscle atrophy to suggest [place] neuropathy. IMPRESSION: Achilles tendon appears grossly intact although there is mild fluid/edema adjacent to the distal segment raising the possibility of low-grade strain versus developing tendinopathy. Differential includes occult plantaris injury (MR tibia/fibula could be considered as clinically warranted). Please correlate to point tenderness. Medial band plantar fasciitis. Posterior tibialis tenosynovitis Dictated by: Delmer Malin M.D. on 11/05/2020 at 9:32 Approved by: Delmer Malin M.D. on 11/05/2020 at 9:53
== END ==
PROVIDERS: PCP Nurse Practitioner Family; Referring Provider Orthopaedic Surgery Foot and Ankle Surgery; Visit Provider Orthopaedic Surgery Foot and Ankle Surgery
DX: M76.62 Achilles tendinitis, left leg (principal)
CPT/HCPCS: 73721

== ENCOUNTER → 2023-03-15 13:58 | Outpatient (CLI) | payer MEDICARE, SELFPAY ==
[2020-03-08 11:48] VITALS: BMI 25.7
--- NOTE | 2023-03-15 | DI.US.S_ITS ---
PROCEDURE: US SCROTUM INDICATIONS: SCROTAL MASS TECHNIQUE: Real-time scanning was performed of the scrotum and testicles, with image documentation. Color and pulse Doppler interrogation was performed of both testicles. COMPARISON: None. FINDINGS: Right: Testicle is normal in size at 4.1 x 2.2 x 3.4 cm, and homogenous in echotexture. A 2.5 x 2.1 x 3.6 cm anechoic cyst is seen along the epididymal body posterior to the right testicle. Epididymis is normal in overall size and morphology. No hydrocele or varicoceles. Overlying scrotal skin is normal in thickness. Left: Testicle is normal in size at 4.8 x 2.1 x 2.6 cm, and homogeneous in echotexture. Epididymis is normal in overall size and morphology. No hydrocele or varicoceles. Overlying scrotal skin is normal in thickness. Doppler: Color and pulse Doppler demonstrate normal and symmetric arterial flow in both testicles. IMPRESSION: Large simple cyst measuring 3.6 cm is seen posterior to the right testicle, likely arising from the epididymis. Approved by: Pavan Grace M.D. on 03/15/2023 at 20:35
== END ==
PROVIDERS: PCP Family Medicine; Referring Provider Family Medicine; Visit Provider Family Medicine
DX: N50.89 Other specified disorders of the male genital organs (principal); N44.2 Benign cyst of testis
CPT/HCPCS: 76870